=== PATIENT | female | born 1995 | race Caucasian/White ===

== ENCOUNTER 2023-12-12 03:01 | Emergency (ER) | payer MEDICAID, OTHER ==
[~2023-12-12] VITALS: Ht 154.9 cm; Wt 49.9 kg
[~2023-12-12 03:01] MED LIST: NITR100C6 PO
[2023-12-12 03:12] VITALS: BP 138/91; TEMP 98.6; O2SAT 99
== END 2023-12-12 03:26 | disposition left against medical advice (07) ==
LOC: ER 03:02
DX: R46.2 Strange and inexplicable behavior (principal); Z53.21 Procedure and treatment not carried out due to patient leaving prior to being seen by health care provider